=== PATIENT | male | born 1990 | race Hispanic/Latino ===

== ENCOUNTER 2019-07-11 02:53 | Emergency (ER) | payer OTHER | END 2019-07-11 04:11 | LOC: EDH 02:53 | DX: Z04.1 Encounter for examination and observation following transport accident (principal); Z72.0 Tobacco use; V89.2XXA Person injured in unspecified motor-vehicle accident, traffic, initial encounter; Y93.89 Activity, other specified; Y92.488 Other paved roadways as the place of occurrence of the external cause; Y99.8 Other external cause status ==